=== PATIENT | male | born 1985 | race Caucasian/White ===

== ENCOUNTER 2019-01-15 17:06 | Emergency (ER) | payer MEDICARE, MEDICAID ==
[2019-01-15] MEDS ORDERED: Sulfameth/Trimethoprim DS 800-160mg TAB ONE (17:47)
== END 2019-01-15 17:53 | disposition home or self-care (01) ==
LOC: MADERS 17:06
DX: L02.11 Cutaneous abscess of neck (principal); E78.5 Hyperlipidemia, unspecified; E78.00 Pure hypercholesterolemia, unspecified
CPT/HCPCS: 99282